=== PATIENT | male | born 1950 | race Caucasian/White ===

== ENCOUNTER 2017-08-08 09:49 | Emergency (ER) | payer MEDICARE, OTHER ==
[~2017-08-08] VITALS: Ht 175.3 cm; Wt 72.0 kg
[~2017-08-08 09:49] MED LIST: GLIM2TAB PO; [UNRECOGNIZED DRUG - REMARK]
[2017-08-08 09:53] VITALS: Ht 175.3 cm; Wt 72.0 kg
[2017-08-08] MEDS ORDERED: SOD CHLORIDE 0.9% 1,000 ML IV STA (10:19)
[2017-08-08] MEDS ORDERED: ONDANSETRON 4 MG INJ IV STA (10:19)
[2017-08-08] MEDS ORDERED: HYDR-906 PO (10:20)
[2017-08-08] MEDS ORDERED: ONDA8TAB14 PO ×2 (10:20→12:19)
[2017-08-08 11:04] LABS: BASOPHILS % 0.4 % (0.0-2.0); EOSINOPHILS % 0.1 % (0.0-7.0); HEMATOCRIT 43.4 % (42.0-52.0); HEMOGLOBIN 14.7 g/dl (14.0-18.0); LYMPHOCYTES # 0.7 10^3/ul (0.8-2.9); LYMPHOCYTES % 6.2 % (15.0-51.0); MEAN CORPUSCULAR HEMOGLOBIN 30.5 pg (29.0-33.0); MEAN CORPUSCULAR HGB CONC 33.9 g/dl (32.0-37.0); MEAN PLATELET VOLUME 10.7 fl (7.4-10.4); MONOCYTE # 0.4 10^3/ul (0.3-0.9); MONOCYTES % 3.5 % (0.0-11.0); NEUTROPHIL # 9.8 10^3/ul (1.6-7.5); NEUTROPHILS % 89.3 % (39.0-77.0); PLATELET COUNT 181 10^3/UL (140-415); RED BLOOD COUNT 4.82 10^6/ul (4.70-6.10); RED CELL DISTRIBUTION WIDTH 13.5 % (11.5-14.5)
[2017-08-08 11:57] LABS: ADD UMIC YES; UR ASCORBIC ACID 20 mg/dL (NEGATIVE); UR BACTERIA FEW /HPF (NONE SEEN); UR BILIRUBIN (Dip) 1+ mg/dL (NEGATIVE); UR BLOOD (Dip) NEGATIVE (NEGATIVE); UR CLARITY CLEAR (CLEAR); UR COLOR AMBER (YELLOW); UR GLUCOSE (Dip) NEGATIVE (NEGATIVE); UR KETONES (Dip) TRACE mg/dL (NEGATIVE); UR LEUKOCYTE ESTERASE (Dip) NEGATIVE Leu/ul (NEGATIVE); UR MUCUS MANY /HPF (NONE SEEN); UR NITRITE (Dip) NEGATIVE (NEGATIVE); UR RBC 2 /HPF (0-5); UR SPECIFIC GRAVITY (Dip) 1.033 (1.003-1.030); UR TOTAL PROTEIN (Dip) 1+ mg/dl (NEGATIVE); UR UROBILINOGEN (Dip) 1+ mg/dL (NEGATIVE)
[2017-08-08 12:03] LABS: ALBUMIN/GLOBULIN RATIO 1.25; CALCIUM 9.1 mg/dl (8.4-10.2); CREATININE 0.92 mg/dl (0.61-1.24); POTASSIUM 3.7 mmol/L (3.5-5.1); TOTAL PROTEIN 7.2 g/dl (6.1-8.1)
[2017-08-08] MEDS ORDERED: BISM262O23 PO (12:19)
--- NOTE | 2017-08-08 12:27 | ERD ---
ER Documentation Chief Complaint Chief Complaint vomiting , diarrhea x 1 day HPI 67-year-old male presents with vomiting diarrhea for last 1-2 days. He denies any fevers, blood, mucus in the vomit is nonbilious nonbloody. Denies abdominal pain. He has a history of diabetes. Denies any foreign travel or sick contacts. Denies fever. ROS All systems reviewed and are negative except as per history of present illness. Medications Home Meds Active Scripts Bismuth Subsalicylate* (Pepto-Bismol*) 262 Mg/15 Ml Oral.susp, 15 ML PO Q3H Y for DIARRHEA for 4 Days, ML Prov:RANDALL ZUÑIGA MD 08/08/17 Ondansetron (Ondansetron Odt) 8 Mg Tab.rapdis, 8 MG PO Q6H Y for NAUSEA AND/OR VOMITING, #8 TAB Prov:RANDALL ZUÑIGA MD 08/08/17 Reported Medications [Can't Remember Meds] No Conflict Check 01/09/13 Glimepiride* (Glimepiride*) 2 Mg Tablet, 2 MG PO DAILY 10/16/11 Discontinued Scripts Ondansetron (Ondansetron Odt) 8 Mg Tab.rapdis, 8 MG PO Q6H Y for NAUSEA AND/OR VOMITING, #10 TAB Prov:RANDALL ZUÑIGA MD 08/08/17 Hydrocodone/Acetaminophen ([place] 5-325 Tablet) 1 Each Tablet, 1 TAB PO Q6H Y for PAIN, #7 TAB Prov:RANDALL ZUÑIGA MD 08/08/17 Allergies Allergies: Coded Allergies: No Known Drug Allergies (Verified Allergy, Unknown, 11/23/13) PMhx/Soc History of Surgery: Yes (THYROIDECTOMY) Anesthesia Reaction: No Hx Neurological Disorder: No Hx Respiratory Disorders: No Hx Cardiac Disorders: Yes (HTN) Hx Psychiatric Problems: No Hx Alcohol Use: Yes (BEER COSUMPTION 5XPER WEEK) Hx Substance Use: Yes (etoh) Hx Tobacco Use: No Smoking Status: Never smoker Physical Exam Vitals Vital Signs Date Time Temp Pulse Resp B/P Pulse Ox O2 Delivery O2 Flow Rate FiO2 08/08/17 09:53 98.3 89 18 130/70 98 Physical Exam Const: [] Alert, [id number] per Head: Atraumatic Eyes: Normal Conjunctiva ENT: Normal External Ears, Nose and Mouth. TMs and oropharynx normal. Neck: Full range of motion..~ No meningismus. Resp: Clear to auscultation bilaterally Cardio: Regular rate and rhythm, no murmurs Abd: Soft, non tender, non distended. Normal bowel sounds Skin: No petechiae or rashes Back: No midline or flank tenderness Ext: No cyanosis, or edema Neur: Awake and alert Psych: Normal Mood and Affect Result Diagram: 08/08/17 1030 08/08/17 1115 Results 24 hrs Laboratory Tests Test 08/08/17 10:30 08/08/17 11:15 White Blood Count 11.010^3/ul Red Blood Count 4.8210^6/ul Hemoglobin 14.7g/dl Hematocrit 43.4% Mean Corpuscular Volume 90.0fl Mean Corpuscular Hemoglobin 30.5pg Mean Corpuscular Hemoglobin Concent 33.9g/dl Red Cell Distribution Width 13.5% Platelet Count 05096^3/UL Mean Platelet Volume 10.7fl Neutrophils % 89.3% Lymphocytes % 6.2% Monocytes % 3.5% Eosinophils % 0.1% Basophils % 0.4% Nucleated Red Blood Cells % 0.0/100WBC Neutrophils # 9.810^3/ul Lymphocytes # 0.710^3/ul Monocytes # 0.410^3/ul Eosinophils # 0.010^3/ul Basophils # 0.010^3/ul Nucleated Red Blood Cells # 0.010^3/ul Urine Color KEANU Urine Clarity CLEAR Urine pH 5.0 Urine Specific [place] 1.033 Urine Ketones TRACEmg/dL Urine Nitrite NEGATIVEmg/dL Urine Bilirubin 1+mg/dL Urine Urobilinogen 1+mg/dL Urine Leukocyte Esterase NEGATIVELeu/ul Urine Microscopic RBC 2/HPF Urine Microscopic WBC 2/HPF Urine Bacteria FEW/HPF Urine Mucus MANY/HPF Urine Hemoglobin NEGATIVEmg/dL Urine Glucose NEGATIVEmg/dL Urine Total Protein 1+mg/dl Sodium Level 141mmol/L Potassium Level 3.7mmol/L Chloride Level 105mmol/L Carbon Dioxide Level 23mmol/L Anion Gap 17 Blood Urea Nitrogen 23mg/dl Creatinine 0.92mg/dl Glucose Level 145mg/dl Calcium Level 9.1mg/dl Total Bilirubin 1.0mg/dl Direct Bilirubin 0.00mg/dl Indirect Bilirubin 1.0mg/dl Aspartate Amino Transf (AST/SGOT) 26IU/L Alanine Aminotransferase (ALT/SGPT) 31IU/L Alkaline Phosphatase 75IU/L Total Protein 7.2g/dl Albumin 4.0g/dl Globulin 3.20g/dl Albumin/Globulin Ratio 1.25 Lipase 25U/L Current Medications Medications (Trade) Dose Ordered Sig/Anderson Route PRN Reason Start Time Stop Time Status Last Admin Dose Admin Sodium Chloride (NS) 1,000 ml @ 1,000 mls/hr Q1H STAT IV 08/08/17 10:19 08/08/17 11:18 DC 08/08/17 10:47 Ondansetron HCl (Zofran Inj) 4 mg ONCE STAT IV 08/08/17 10:19 08/08/17 10:20 DC 08/08/17 10:47 Procedures/MDM EKG: Rate/Rhythm: [Normal Sinus Rhythm] rate equals 84. QRS, ST, T-waves: [No changes consistent w/ acute ischemia] Impression: [No evidence of ischemia or arrhythmia] Given patient's comorbidities and IV was obtained. Patient was given 1 L normal saline IV. Slight leukocytosis. CMP shows slight elevation of BUN, otherwise no significant acute findings and no metabolic acidosis or hypokalemia. Urine shows trace ketones is concentrated. Patient is given Zofran 4 mg IV. She presents with vomiting during last 2 days without significant signs of dehydration, or metabolic abnormalities. We treated with Zofran, Pepto-Bismol, instructions for fluids at home, further observation, return precautions and primary care follow-up. Patient is is no signs of abdominal pain no signs of pneumonia, sepsis or additional emergent conditions requiring further evaluation but should however return to ER for new or worsening symptoms. The patient was stable with no new complaints during the ER course. Clinically, there is no current evidence to suggest meningitis, sepsis, acute abdomen, pneumonia, acute coronary syndrome, pulmonary embolism, or any other emergent condition appearing to require further evaluation or hospitalization. The patient should certainly return for any new or worsening symptoms per the aftercare instructions. They should otherwise follow-up with her primary care doctor for reevaluation this week. Departure Diagnosis: Primary Impression: Vomiting and diarrhea Condition: Stable Patient Instructions: Vomiting And Diarrhea, Nonspecific (Adult) Additional Instructions: probablamente un virus que dura 2-4 horn. cheque otro vez en el proximo fabiana para mas simptomas- vomito, dolor, kaveh, problemas con respirando, o con cortez doctor primario. RANDALL ZUÑIGA MD Aug 08, 2017 12:27
== END 2017-08-08 13:00 | disposition home or self-care (01) ==
LOC: FTE 09:49
DX: R11.10 Vomiting, unspecified (principal); R19.7 Diarrhea, unspecified; I10 Essential (primary) hypertension; Z79.84 Long term (current) use of oral hypoglycemic drugs
CPT/HCPCS: 36415; 80053; 81001; 83690; 85025; 93005; 96374; 99284; J2405; J7030

== ENCOUNTER 2018-06-20 02:43 | Emergency (ER) | END 2018-06-20 05:00 | disposition home or self-care (01) ==